=== PATIENT | male | born 1980 | race Caucasian/White ===

== ENCOUNTER 2022-09-28 23:34 | Inpatient (IN) | payer SELFPAY ==
[2022-09-28 23:34] VITALS: BP 111/78; PULSE 97; RESP 18; TEMP 36.5; O2SAT 96
[2022-09-29 00:10] VITALS: BMI 20.9
[2022-09-29 06:00] VITALS: BP 95/61; PULSE 74; RESP 18; O2SAT 95
[2022-09-29] MEDS: benztropine 1 mg Tablet PO (11:03)
[2022-09-29] MEDS: hyDROXYzine 25 mg Capsule 50 MG PO (11:03)
[2022-09-29] MEDS: nicotine 2 mg Gum BUCCAL (11:11)
--- NOTE | 2022-09-29 11:33 | PC.NURSE ---
Patient denies hi, but does endorse si and depression. Patient states he has no plan at this time and contracted for safety. Denies avh. Patient began rocking back and forth with tics and tremors of the arms, hands, neck, and feet. All appeared to be involuntary movements. He stated this was a normal occurrence when he was withdrawing from methamphetamine. Patient also endorsed having extreme anxiety and lockjaw. This RN administered cogentin and vistaril 50mg po. Patient's skin was very cool to the touch. He said he was very hungry but didn't want a sandwich. He did take two muffins and while eating them this RN did part of his physical assessment and because he was eating so erratically and quickly he spit on this nurse's arm by accident. Vitals were also taken and were all WNL. Patient now resting in bed and states he feels better.
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
[2022-09-29 14:00] VITALS: RESP 16
[2022-09-29 19:51] VITALS: BP 99/64; PULSE 63; RESP 18; TEMP 36.4; O2SAT 97
--- NOTE | 2022-09-29 23:45 | PC.NURSE ---
At approximately 2200 pt came to the desk w/chapincito scrub bottoms on no shirt, and was asked to change and put a shirt on. Pt became agitated and aggressive w/staff stating you're annoying the fuck out of me . Pt put shirt on and returned to the desk for a drink, then paced the halls. Upon returning to his room, he shut the door all the way and when he was confronted that he at least needed to leave the door open slightly per NPU rules, became agitated again w/staff stating that staff were not allowing him to sleep, and he wanted to check out. Pt agitation worsened when roommate was introduced into the room, stating staff were annoying him and preventing him from sleeping however this is the first time thus far this shift pt has been outside of his room or out of the bed. One on one care and redirection provided with limited affected. Pt returned to his room and layed down. Monitoring continues.
[2022-09-30 06:00] VITALS: BP 97/50; PULSE 61; RESP 16; O2SAT 95
[2022-09-30] MEDS: OLANZapine 5 mg ODT PO (09:17)
[2022-09-30] MEDS: nicotine 2 mg Gum BUCCAL ×2 (09:18→15:00)
[2022-09-30 13:32] VITALS: BP 105/64; PULSE 105; RESP 16; TEMP 36.5; O2SAT 98
--- NOTE | 2022-09-30 17:31 | W.PM.NPUPNS ---
Subjective NPU Subjective: The patient is a 42-year-old white male admitted with depression and suicidal ideation with a reported history of traumatic brain injury. He had stated that he would like to leave soon. He stated that he had been off of his medications for several weeks but would restart his Wellbutrin and gabapentin as previously prescribed. He stated that he remained uncertain as to whether he would return back to [place]. He had reported improved mood at this time. He had required some prompting for completion of activities of daily living. Mental Status Exam MSE Comments: The patient appeared to be twitching with poor hygiene and a steady gait. His right eye was externally deviated. He is a thin white male who appeared older than his stated age he was alert and orientedx3. His mood was described as a little better. His affect was constricted. His thought process was linear and logical. His thought content showed evidence of suicidal ideation and no homicidal ideation. He did not appear to be actively responding internal stimuli. His speech was normal in regards to volume with some increased latency in speech and some word finding difficulties. There was no clear evidence of delusional thinking. There was an overall poverty of content as he struggled to elaborate regarding any details regarding his living situation and his past history. His insight appeared impaired. His judgment was poor. His impulse control appeared limited at best. His recent and remote memory appeared impaired as well. Vitals/I&O/Wt Last Vital Signs Temp 97.7 F 09/30/22 13:32 Pulse 105 H 09/30/22 13:32 Resp 16 09/30/22 13:32 BP 105/64 09/30/22 13:32 Pulse Ox 98 09/30/22 13:32 O2 Del Method Room Air 09/30/22 06:00 Weight last 48 hrs Weight 58.967 kg Weight 58.967 kg A&P Assessment and plan (1) Depression, unspecified: (2) Suicidal ideation: (3) PTSD (post-traumatic stress disorder): (4) Methamphetamine abuse: Plan Is a 42-year-old white male endorsing suicidal ideation while currently homeless and actively using methamphetamines with a past history of depression and PTSD. Patient would likely benefit from inpatient hospitalization. 1.?Encourage individual, group and milieu therapy. 2.?Recommend sober living treatment at the highest level of care to which the patient is willing to commit. 3.??? Continue q-15 minute checks for safety.? 4. Attempt to gather collateral information and any previous records 5. Will start wellbutrin xl 150mg in am and Gabapentin 300mg po tid. Attestations NPU Medical Necessity Statement*: Inpatient hospitalization is medically necessary and deemed to be the clinically appropriate intervention at this time.? We will monitor/initiate medications and make changes as indicated.? Hs likely length of stay is 4 to 6 days. Coding Level of Care Code Acute Code for Chg Fwd Diagnoses Depression, unspecified F32.A Suicidal ideation R45.851 PTSD (post-traumatic stress disorder) F43.10 Methamphetamine abuse F15.10
[2022-09-30] MEDS: hyDROXYzine 25 mg Capsule 50 MG PO (17:33)
[2022-09-30] MEDS: gabapentin 300 mg Capsule PO (20:07)
[2022-09-30 20:17] VITALS: BP 117/78; PULSE 72; RESP 18; O2SAT 98
[2022-09-30] MEDS: trazodone 50 mg Tablet PO (20:42)
--- NOTE | 2022-09-30 21:35 | PC.NURSE ---
Pt belligerent w/staff regarding the hallway being lit, not being able to close his door, and not having a shower curtain in his room. Pt con't to perseverate on negative findings on the unit. One on one direction and care provided with minimal effect. Pt did return to his room to lay down. Monitoring continues.
[2022-10-01 06:00] VITALS: BP 96/59; PULSE 64; RESP 15; O2SAT 96
[2022-10-01] MEDS: gabapentin 300 mg Capsule PO (09:26)
[2022-10-01] MEDS: buPROPion XL (24 HR) 150 mg Tablet PO (09:27)
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
[2022-10-01 11:11] VITALS: BP 96/59; PULSE 64; RESP 15; O2SAT 96
[2022-10-01] MEDS: nicotine 2 mg Gum BUCCAL (11:53)
== END 2022-10-01 12:55 | disposition home or self-care (01) | DRG 881 ==
PROVIDERS: Admitting Provider Psychiatry & Neurology Psychiatry; Visit Provider Psychiatry & Neurology Psychiatry
DX: F32.A Depression, unspecified (principal); R45.851 Suicidal ideations; F15.20 Other stimulant dependence, uncomplicated; Z59.00 Homelessness unspecified; F43.10 Post-traumatic stress disorder, unspecified; Z87.820 Personal history of traumatic brain injury; Z62.810 Personal history of physical and sexual abuse in childhood; Z62.811 Personal history of psychological abuse in childhood; T43.296A Underdosing of other antidepressants, initial encounter; Z91.128 Patient's intentional underdosing of medication regimen for other reason
CPT/HCPCS: 97165; 99238

== ENCOUNTER 2022-10-19 22:50 | Inpatient (IN) | payer SELFPAY ==
[2022-10-19 23:11] VITALS: BP 138/83; PULSE 60; RESP 18; TEMP 36.8; O2SAT 97; BMI 22.6
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
[2022-10-19 23:49] LABS: Basophils # 0.1 10^3/uL (0.0-0.1); Basophils % 0.6 %; Eosinophils # 0.2 10^3/uL (0.0-0.8); Eosinophils % 2.1 %; Hematocrit 45.2 % (42.0-52.0); Hemoglobin 14.7 g/dL (11.7-16.6); Lymphocytes # 2.9 10^3/uL (0.8-4.8); Lymphocytes % 29.5 %; Mean Corpuscular HGB Conc 32.5 g/dL (30.0-36.0); Mean Corpuscular Hemoglobin 28.7 pg (28.0-34.0); Mean Corpuscular Volume 88.3 fl (80-94); Monocytes # 0.6 10^3/uL (0.2-0.9); Monocytes % 6.3 %; Neutrophils # 5.95 10^3/uL (1.8-7.7); Neutrophils % 60.7 %; Nucleated Red Blood Cells % 0 %; Platelet Count 235 10^3/cmm (130-400); Red Blood Count 5.12 10^6/uL (4.1-5.3); Red Cell Distribution Width 13.1 % (12.1-15.1); White Blood Count 9.8 10^3/uL (4.0-10.0)
[2022-10-20 00:27] LABS: Alanine Aminotransferase 14 U/L (0-41); Albumin Level 4.4 g/dL (3.5-5.2); Alkaline Phosphatase 66 U/L (40-130); Anion Gap 17.9 (5-19); Aspartate Amino Transferase 16 U/L (0-40); Blood Urea Nitrogen 11 mg/dL (6-20); Calcium 9.4 mg/dL (8.5-10.5); Carbon Dioxide 25 mmol/L (22-29); Chloride 104 mmol/L (98-107); Globulin 2.6 g/dL (1.3-4.6); Glomerular Filtration Rate 93.5 mL/min (90-130); Glucose 102 mg/dL (65-115); Osmolality Calculated 296 mOsm/kg (285-295); Potassium 3.9 mmol/L (3.5-5.1); Salicylate 0.5 mg/dL (3-10); Sodium 143 mmol/L (136-145); Thyroid Stimulating Hormone 3.38 uIU/mL (0.27-4.20); Total Bilirubin 0.9 mg/dL (0.15-1.2)
[2022-10-20 00:30] LABS: Acetaminophen < 5.0 ug/mL (10-30); Alcohol Level < 10 mg/dL (0-10)
[2022-10-20] MEDS: gabapentin 300 mg Capsule PO ×4 (00:44→20:20)
[2022-10-20] MEDS: acetaminophen 500 mg Tablet 1000 MG PO (00:44)
[2022-10-20] MEDS: LORazepam 1 mg Tablet PO (00:44)
[2022-10-20 02:47] LABS: Add Urine Microscopic? NO; Charge for UA Resulting for Rev
[2022-10-20 02:52] LABS: Bilirubin Urine Neg (Negative); Blood Urine Neg (Negative); Glucose Urine UA Norm (Normal); Ketones Urine Negative (Negative); Leukocyte Esterase Urine Negative (Negative); Nitrate Urine Negative (Negative); Protein Urine Neg (Negative); Urine Appearance Clear (CLEAR); Urine Color Yellow (Yellow); Urobilinogen Urine 1 mg/dL (Negative); pH Urine 6 (5-7)
[2022-10-20 02:57] VITALS: BP 129/77; PULSE 66; RESP 17; TEMP 36.7; O2SAT 99
[2022-10-20 03:02] VITALS: BP 127/86; PULSE 76; RESP 18; TEMP 36.4; O2SAT 96
[2022-10-20 03:21] LABS: Amphetamines Screen Urine Negative (Negative); Barbiturates Screen Urine Negative (Negative); Benzodiazepines Screen Urine Negative (Negative); Cocaine Screen Urine Negative (Negative); Opiate Screen Urine Negative (Negative); PCP Screen Urine Negative (Negative); THC Screen Urine Positive (Negative)
--- NOTE | 2022-10-20 03:57 | PC.ADMIT ---
Homeless Admission Note: The patient,Fabricio Patel,42 y/o, was given written information regarding hospital policies, unit procedures and contact persons. Patient's smoking status: .SMOKES 1 PACK A DAY Vital Signs - 8 hr 10/19/22 23:11 10/20/22 02:57 10/20/22 03:39 Temperature 98.2 F 98.0 F Pulse Rate 60 66 Respiratory Rate 18 17 Blood Pressure 138/83 129/77 Pulse Oximetry 97 99 Oxygen Delivery Method Room Air Room Air 10/20/22 03:02 Temperature 97.6 F Pulse Rate 76 Respiratory Rate 18 Blood Pressure 127/86 Pulse Oximetry 96 Oxygen Delivery Method Room Air 42 YEAR OLD MALE ADMITTED TO NPU AT [facility] WITH NURSE AND SECURITY AT SIDE VIA WHEELCHAIR. PT DATE WAS INCORRECT ON NAME BAND, REGISTRATION WAS CALLED AND BDAY WAS CLARIFIED AND FIXED PER REGISTRATION. PT STATES HIS BIRTHDAY IS [birth year] NOT [birth year]. PT WAS RECENTLY DISCHARGED FROM NPU A FEW WEEKS AGO AND WAS HERE FOR METHAMPHETAMINE ABUSE/PSYCHOSIS. PT STATES HE IS HERE TODAY BECAUSE I NEED NEW MEDICATIONS AND I'M OUT AND THEY AREN'T WORKING, SO I NEED OTHER ONES. I'N SUICIDAL AND WANTED TO RUN INTO MOVING TRAFFIC TODAY. PT IS HIGHLY AGITATED AND REFUSED TO SIGN HIS CONSENT FORM OR ANY OF HIS PAPER WORK AT TIME OF ADMISSION. PT WAS EDUCATED THAT WE COULD NOT TREAT HIM UNLESS HE SIGNS HIS PAPERS. ER REPORTS HE IS VOLUNTARY WITH NO AFFIDAVIT AND IS NOT ON A HOLD. PT WAS INFORMED IF HE WOULD NOT SIGN IN THEN HE LEAGALLY COULD NOT BE TREATED. PT DID EVENTUALLY SIGN IN AFTER MULTIPLE ATTEMPTS. PT DID NOT WANT TO SPEAK TO RN AND MAJORITY OF QUESTIONS PT STATED MAN JUST GET OUT OF MY FACE I WANT TO SLEEP. PT HAS HISTORY OF TBI AND HIS MEMORY IS IMPAIRED. PT KEEPS SAYIN HOW DID I GET BACK HERE I JUST LEFT THIS PLACE. I WAS TR[facility] SO I COULD STAY THERE FOR 40 DAYS AND THEY COULD STABILIZE. PT WAS ENCOURAGED TO ANSWER QUESTIONS AND PARTICIPATE IN ASSESSMENT. PT DENIES HI, STATES HE STILL FEELS SUICIDAL AND HE WILL BE UNTIL THE DRJuanpablo CHANGES HIS MEDICATIONS. WHEN ASKED IF PT HAS HALLUCINATIONS, PT JUST LOOKED UP IN THE AIR AND MUTTERED SOMETHING. PT DOES NOT APPEAAR TO BE RESPONDING TO INTERNAL OR EXTERNAL STIMULI. PT DENIES PAIN. PT IS OBSERVED HAVING DIFFICULTY AMBULATING TO ROOM AND USES THE WALL TO SHUFFLE DOWN TO 152. PT STATES HE USES A WALKER DUE TO NERVE PAIN. PTS GABAPENTIN WAS GIVEN IN THE ER AND WILL BE RESTARTED HERE. PT TAKES 300 MG TID. ORDERS RECEIVED FOR PHYSICAL THERAPY CONSULT TO ASSESS AND TREAT FOR BILATERAL LOWER EXTREMITY WEAKNESS AND FIT FOR WALKER IF NEEDED. PT USD POSITIVE FOR THC. PT ORIENTATED TO UNIT. ALL QUESTIONS ANSWERED AND SUPPORT VOICED. PT CURRENTLY IN BED RESTING REQUESTED.
--- NOTE | 2022-10-20 04:01 | PC.NURSE ---
ORDERS RECEIVED TO RESTART WELLBUTRIN 150 MG DAILY. PT WAS ON THIS AT TIME OF DISCHARGE. STATES IT DOES NOT WORK AND WANTS SOMETHING NEW. PT WAS EDUCATED THAT THE DRJuanpablo WOULD EVALUATE HIM TODAY AND DECIDE IF ANY CHANGES WERE WARRANTED.
[2022-10-20 06:00] VITALS: BP 109/69; PULSE 65; RESP 16; O2SAT 95
[2022-10-20] MEDS: buPROPion XL (24 HR) 150 mg Tablet PO (08:57)
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
[2022-10-20] MEDS: hyDROXYzine 25 mg Capsule 50 MG PO (13:44)
[2022-10-20 14:00] VITALS: BP 116/73; PULSE 89; RESP 16; TEMP 36.5; O2SAT 95
--- NOTE | 2022-10-20 15:28 | PC.PT ---
Per observation of occupational therapist, patient demonstrated safe independent ambulation to from group without device, and without deficits, gait was steady and even, and patient had no complaints of, regarding need of assistive device, staff state patient doing better today. No further PT intervention planned at this time.
[2022-10-20 20:16] VITALS: BP 119/76; PULSE 80; RESP 17; TEMP 36.8; O2SAT 96
[2022-10-20] MEDS: OLANZapine 5 mg ODT PO (20:19)
--- NOTE | 2022-10-20 21:13 | PC.NURSE ---
PT WAS WOKE UP TO COMPLETE ASSESSMENT. PT BECAME INCREASING AGITATED WHEN ASKED QUESTIONS. CONTINUES TO ENDORSES SUICIDAL THOUGHTS WITH A PLAN. WHEN ASKED WHAT HIS PLAN WAS PT COULD NOT VERBALIZE A PLAN, ONLY STATES IF THE FBI WASN'T AFTER ME AND ALL THAT SHIT, BUT YA I WANT TO , I JUST WANT TO . ALSO ENDORSEES HOMICIDAL IDEATION, WHEN ASKED WHO HE WAS WANTING TO HURT SPECIFICALLY PT COULD NOT RECALL, ONLY STATES WHEN YOU HAVE THE FBI AND THEY WON'T LEAVE YOU ALONE, THEN YA, YA PT DENIES AVH AT THIS TIME BUT AT TIMES SEEMS TO RESPOND TO INTERNAL STIMULI. PT IS UPSET THAT HE IS NOT PRESCRIBED DIFFERENT MEDICATIONS AND STATES HIS WELBUTRIN 150MG IS NOT WORKING AND THE GABAPENTIN NEEDS TO BE INCREASED. REASSURED PT THAT THE IS AWARE OF HIS MEDICATIONS AND HAS REVIEWED THEM AND WILL ADJUST IF NEEDED. PT IS ANIMATED WITH SPEECH, CUSSES AND HAS LOOSE ASSOCIATION WHEN SPEAKING WITH STAFF. PARANOID THAT THE FBI IS FOLLOWING HIM. PT WAS INFORMED THAT THE RN PULLED TRAZODONE TO HELP WITH HIS SLEEP,. PT STATED HE DOES NOT TAKE THAT IT MESSES WITH MY FEET. INFORMED PT HE SEEMED AGITATED AND OFFERED SOMETHING FOR ANXIETY. PT STATES WHAT DO YOU GOT, YA GIVE ME DRUGS I WANNA GET HIGH. PT WAS EDUCATED THAT THE MEDICATION IS USED FOR ANXIETY NOT TO GET HIGH. PT DID COME TO NURSES STATION AND NIGHT TIME MEDS WERE GIVEN WITH ZYDIS 5 MG ORDERED FOR ANXIETY AND AGITATION. SUPPORT VOICED.
--- NOTE | 2022-10-21 03:02 | PC.NURSE ---
ADMINISTRATION OF ZYDIS 5 MG EARLIER THIS SHIFT WAS EFFECTIVE. PT HAS BEEN SLEEPING SHORTLY AFTER MEDICATION WAS RECEIVED.
[2022-10-21 06:00] VITALS: BP 103/62; PULSE 67; RESP 17; O2SAT 100
[2022-10-21] MEDS: gabapentin 300 mg Capsule PO ×2 (09:30→15:59)
[2022-10-21] MEDS: buPROPion XL (24 HR) 150 mg Tablet PO (09:30)
[2022-10-21 14:00] VITALS: BP 116/77; PULSE 89; RESP 18; TEMP 36.6; O2SAT 97
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
--- NOTE | 2022-10-21 17:15 | PC.NURSE ---
PT REPEATEDLY REQUESTED TO LEAVE. PHYSICIAN SPOKE WITH PT AND STATED THAT HE DID BELIEVED THAT HE WOULD BENEFIT FOR A LONGER STAY HERE. PT STILL WANTED TO LEAVE. PHYSICIAN AWARE OF SITUATION AND STATED THAT HE WOULD HAVE TO LEAVE AMA. PT FILLED OUT RISK FORM AND ANSWERED NO TO ALL QUESTIONS. PT WAS EDUCATED ON WHAT LEAVING AMA MEANS AND HOW THAT MAY AFFECT HIM. PT UNDERSTANDS THE RISKS AND STILL SIGNED PAPERWORK TO LEAVE AMA. PT QUESTIONS WERE ANSWERED. BELONGINGS RETURNED.
[2022-10-21 17:19] VITALS: BP 116/77; PULSE 89; RESP 18; TEMP 36.6; O2SAT 97
== END 2022-10-21 17:27 | disposition left against medical advice (07) | DRG 881 ==
LOC: ER 10-20 00:44 → NP 10-20 03:13
PROVIDERS: Admitting Provider Psychiatry & Neurology Psychiatry; Emergency Provider Nurse Practitioner Family; Visit Provider Psychiatry & Neurology Psychiatry
DX: F32.A Depression, unspecified (principal); R45.851 Suicidal ideations; F43.10 Post-traumatic stress disorder, unspecified; Z59.00 Homelessness unspecified; F15.10 Other stimulant abuse, uncomplicated; Z87.820 Personal history of traumatic brain injury; Z53.29 Procedure and treatment not carried out because of patient's decision for other reasons
CPT/HCPCS: 36415; 80053; 80306; 80307; 81003; 84443; 85025; 97165; 99238; 99285

== ENCOUNTER 2022-10-22 23:26 | Emergency (ER) | payer SELFPAY ==
[2022-10-22 23:32] VITALS: BP 171/86; PULSE 110; RESP 16; TEMP 36.7; O2SAT 97; BMI 25.8
--- NOTE | 2022-10-23 00:06 | W.ED.ALCOHOL ---
HPI - Alcohol General: Chief Complaint: Alcohol Stated Complaint: SI Time Seen by Provider: 10/22/22 23:31 Source: EMS Mode of arrival: EMS Limitations: other (intoxicated) History of Present Illness: 42-year-old male who update care in the past he is homeless has a history of severe alcoholism patient was found at a gas station tonight was very intoxicated police were called he had supposedly made suicidal statements to the police he denies being suicidal to me he states that he just been drinking today he has no complaints here at this time but is extremely intoxicated and history is difficult Associated symptoms: Deny abdominal pain, nausea or vomiting Review of Systems Const: Denies: fever(s), chills, body aches or change in appetite Eyes: Denies: blurry vision or eye discomfort ENMT: Denies: throat pain or dental pain Card: Denies: chest pain Resp: Denies: dyspnea GI: Denies: abdominal pain, nausea, vomiting or diarrhea : Denies: dysuria Musc: Denies: neck pain or back pain Skin/Breast: Denies: rash Neuro: Denies: headache(s) Physical Exam Const: COMMON NORMALS: patient oriented x3 OTHER: Very intoxicated HENMT: COMMON NORMALS: normocephalic and atraumatic HEAD & SCALP: normocephalic and atraumatic Eye: COMMON NORMALS: Equal, round and reactive pupils present and EOMs intact bilaterally PUPIL: Yes Equal, round and reactive pupils present Neck/C-Spine: COMMON NORMALS: full ROM and supple Chest: COMMONS NORMALS: normal inspection of the chest and normal palpation of entire chest wall Resp: COMMON NORMALS: normal respiratory effort, No retractions, No use of accessory muscles and clear to auscultation bilaterally AUSCULTATION: clear to auscultation bilaterally Cardio: COMMON NORMALS: regular rate, regular rhythm and No murmurs present (Cardio) RATE: regular rate RHYTHM: regular rhythm GI: COMMON NORMALS: Normal to inspection, nondistended, normoactive bowel sounds present, Soft to palpation, non-tender and no masses PALPATION: Yes Soft to palpation Extremity: COMMON NORMALS: normal to inspection and full ROM Neuro: COMMON NORMALS: patient oriented x3, moves all extremities and no focal motor deficits Psych: COMMON NORMALS: mental status grossly normal, Normal thought process present and cooperative THOUGHT PROCESS: Normal thought process present Skin: COMMON NORMALS: no rashes or lesions noted and no wounds GENERAL SKIN EXAM: no rashes or lesions noted Course Vital Signs: Vital signs: Vital Signs Temperature 98.0 F 10/22/22 23:32 Pulse Rate 114 H 10/23/22 05:34 Respiratory Rate 18 10/23/22 05:34 Blood Pressure 122/83 10/23/22 00:32 Pulse Oximetry 97 10/23/22 05:34 Oxygen Delivery Me thod Room Air 10/22/22 23:32 MDM - Alcohol Medical Decision Making Patient presents with alcohol intoxication he has not made any suicidal statements. He is now sober ambulatory this morning discharge he is stable for discharge at this time he is follow-up with PCP and return if worsening. Medical Records I reviewed the patient's medical records. Lab Data I reviewed the patient's lab results. 10/22/22 23:45 10/22/22 23:45 Laboratory Results WBC 10.5 10^3/uL (4.0-10.0) H 10/22/22 23:45 RBC 5.47 10^6/uL (4.1-5.3) H 10/22/22 23:45 Hgb 16.0 g/dL (11.7-16.6) 10/22/22 23:45 Hct 48.3 % (42.0-52.0) 10/22/22 23:45 MCV 88.3 fl (80-94) 10/22/22 23:45 MCH 29.3 pg (28.0-34.0) 10/22/22 23:45 MCHC 33.1 g/dL (30.0-36.0) 10/22/22 23:45 RDW 13.3 % (12.1-15.1) 10/22/22 23:45 Plt Count 246 10^3/cmm (130-400) 10/22/22 23:45 MPV 10.9 fL (7.4-10.4) H 10/22/22 23:45 Neut % (Auto) 47.7 % 10/22/22 23:45 Lymph % (Auto) 40.8 % 10/22/22 23:45 [place] % (Auto) 7.5 % 10/22/22 23:45 Eos % (Auto) 2.0 % 10/22/22 23:45 Baso % (Auto) 0.7 % 10/22/22 23:45 Neut # (Auto) 5.02 10^3/uL (1.8-7.7) 10/22/22 23:45 Lymph # (Auto) 4.3 10^3/uL (0.8-4.8) 10/22/22 23:45 [place] # (Auto) 0.8 10^3/uL (0.2-0.9) 10/22/22 23:45 Eos # (Auto) 0.2 10^3/uL (0.0-0.8) 10/22/22 23:45 Baso # (Auto) 0.1 10^3/uL (0.0-0.1) 10/22/22 23:45 Nucleated RBC % (auto) 0 % 10/22/22 23:45 Nucleated RBCs # 0.0 /100WBC 10/22/22 23:45 Sodium 144 mmol/L (136-145) 10/22/22 23:45 Potassium 3.6 mmol/L (3.5-5.1) 10/22/22 23:45 Chloride 105 mmol/L (98-107) 10/22/22 23:45 Carbon Dioxide 24 mmol/L (22-29) 10/22/22 23:45 Anion Gap 18.6 (5-19) 10/22/22 23:45 BUN 8 mg/dL (6-20) 10/22/22 23:45 Creatinine 0.9 mg/dL (0.7-1.2) 10/22/22 23:45 GFR Calculation 93.5 mL/min (90-130) 10/22/22 23:45 Glucose 115 mg/dL (65-115) 10/22/22 23:45 Calculated Osmolality 297 mOsm/kg (285-295) H 10/22/22 23:45 Calcium 9.5 mg/dL (8.5-10.5) 10/22/22 23:45 Total Bilirubin 0.6 mg/dL (0.15-1.2) 10/22/22 23:45 AST 20 U/L (0-40) 10/22/22 23:45 ALT 19 U/L (0-41) 10/22/22 23:45 Alkaline Phosphatase 71 U/L (40-130) 10/22/22 23:45 Total Protein 7.4 g/dL (6.6-8.7) 10/22/22 23:45 Albumin 4.9 g/dL (3.5-5.2) 10/22/22 23:45 Globulin 2.5 g/dL (1.3-4.6) 10/22/22 23:45 Salicylates < 0.3 mg/dL (3-10) L 10/22/22 23:45 Urine Opiates Screen Negative ng/mL (Negative) 10/22/22 23:32 Acetaminophen < 5.0 ug/mL (10-30) L 10/22/22 23:45 Ur Barbiturates Screen Negative ng/mL (Negative) 10/22/22 23:32 Ur Phencyclidine Scrn Negative ng/mL (Negative) 10/22/22 23:32 Ur Amphetamines Screen Negative ng/mL (Negative) 10/22/22 23:32 U Benzodiazepines Scrn Negative ng/mL (Negative) 10/22/22 23:32 Urine Cocaine Screen Negative ng/mL (Negative) 10/22/22 23:32 U Marijuana (THC) Screen Positive ng/mL (Negative) H 10/22/22 23:32 Ethyl Alcohol 284 mg/dL (0-10) H 10/22/22 23:45 Discharge Plan Discharge Patient Disposition: Home Clinical Impression: Alcoholic intoxication Condition: Stable Prescriptions: No Action gabapentin 300 mg Capsule 300 mg PO TID Qty: 90 1RF bupropion HCl 150 mg Tablet Extended Release 24 Hr 150 mg PO DAILY 30 Days Qty: 30 1RF Wellbutrin SR 150 mg Tablet Sustained-Release 12 Hr 150 mg PO DAILY gabapentin 300 mg Capsule 300 mg PO TID Discharge Orders: Discharge ED (Routine); Ordered 10/23/22 Ordered By: Martha Gill Discharge Diet: Advance as tolerated Discharge Activity: Resume usual activity Patient Instructions: Alcohol Intoxication (ED) Coding Level of Care Code ED Harvester Operator for Gomez Jovel
[2022-10-23 00:11] LABS: Alanine Aminotransferase 19 U/L (0-41); Albumin Level 4.9 g/dL (3.5-5.2); Alcohol Level 284 mg/dL (0-10); Alkaline Phosphatase 71 U/L (40-130); Anion Gap 18.6 (5-19); Aspartate Amino Transferase 20 U/L (0-40); Blood Urea Nitrogen 8 mg/dL (6-20); Calcium 9.5 mg/dL (8.5-10.5); Carbon Dioxide 24 mmol/L (22-29); Chloride 105 mmol/L (98-107); Globulin 2.5 g/dL (1.3-4.6); Glomerular Filtration Rate 93.5 mL/min (90-130); Glucose 115 mg/dL (65-115); Osmolality Calculated 297 mOsm/kg (285-295); Potassium 3.6 mmol/L (3.5-5.1); Sodium 144 mmol/L (136-145); Total Bilirubin 0.6 mg/dL (0.15-1.2); Total Protein 7.4 g/dL (6.6-8.7)
[2022-10-23 00:20] LABS: Acetaminophen < 5.0 ug/mL (10-30); Salicylate < 0.3 mg/dL (3-10)
[2022-10-23 00:22] LABS: Basophils # 0.1 10^3/uL (0.0-0.1); Basophils % 0.7 %; Eosinophils # 0.2 10^3/uL (0.0-0.8); Hematocrit 48.3 % (42.0-52.0); Lymphocytes # 4.3 10^3/uL (0.8-4.8); Lymphocytes % 40.8 %; Mean Corpuscular HGB Conc 33.1 g/dL (30.0-36.0); Mean Corpuscular Hemoglobin 29.3 pg (28.0-34.0); Mean Corpuscular Volume 88.3 fl (80-94); Mean Platelet Volume 10.9 fL (7.4-10.4); Monocytes # 0.8 10^3/uL (0.2-0.9); Monocytes % 7.5 %; Neutrophils # 5.02 10^3/uL (1.8-7.7); Neutrophils % 47.7 %; Nucleated Red Blood Cells % 0 %; Platelet Count 246 10^3/cmm (130-400); Red Blood Count 5.47 10^6/uL (4.1-5.3); Red Cell Distribution Width 13.3 % (12.1-15.1); White Blood Count 10.5 10^3/uL (4.0-10.0)
[2022-10-23 00:23] LABS: Slide Review Slide Review Perform
[2022-10-23 00:32] VITALS: BP 122/83; PULSE 98; RESP 16; O2SAT 98
[2022-10-23] MEDS: haloperidol inj 5 mg/mL INJ 1 mL IM (00:48)
[2022-10-23 00:56] LABS: Amphetamines Screen Urine Negative (Negative); Barbiturates Screen Urine Negative (Negative); Benzodiazepines Screen Urine Negative (Negative); Cocaine Screen Urine Negative (Negative); Opiate Screen Urine Negative (Negative); PCP Screen Urine Negative (Negative); THC Screen Urine Positive (Negative)
[2022-10-23 02:45] VITALS: PULSE 110; RESP 18
[2022-10-23 03:15] VITALS: RESP 16
[2022-10-23 05:34] VITALS: PULSE 114; RESP 18; O2SAT 97
== END 2022-10-23 05:35 | disposition home or self-care (01) ==
PROVIDERS: Emergency Provider Emergency Medicine
DX: F10.129 Alcohol abuse with intoxication, unspecified (principal); Y90.8 Blood alcohol level of 240 mg/100 ml or more; Z79.899 Other long term (current) drug therapy; Z59.00 Homelessness unspecified
CPT/HCPCS: 80053; 80306; 80307; 85025; 96372; 99284; J1630

== ENCOUNTER 2022-10-25 04:42 | Emergency (ER) | payer SELFPAY ==
[2022-10-25 04:49] VITALS: BP 175/85; PULSE 120; RESP 18; TEMP 36.6; O2SAT 97; BMI 22.6
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
--- NOTE | 2022-10-25 04:57 | XRR_ITS ---
PROCEDURE INFORMATION: Exam: XR Thoracic Spine Exam date and time: 10/25/2022 5:04 AM Age: 42 years old Clinical indication: Injury or trauma; Fall; Blunt trauma (contusions or hematomas); Patient HX: Patient fell backwards onto back two days ago. C/O worsening mid back pain. TECHNIQUE: Imaging protocol: Radiologic exam of the thoracic spine. Views: 3 views. COMPARISON: No relevant prior studies available. FINDINGS: Bones/joints: Normal. No acute fracture. Normal alignment. Soft tissues: Unremarkable. XR/XR thoracic spine 3V* [id number] IMPRESSION: No acute findings.
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
[2022-10-25] MEDS: LORazepam 2 mg Tablet PO (05:03)
[2022-10-25] MEDS: gabapentin 300 mg Capsule 600 MG PO (05:03)
[2022-10-25 05:06] VITALS: BP 175/85; PULSE 128; O2SAT 97
[2022-10-25 05:22] VITALS: BP 157/85; PULSE 120; O2SAT 98
[2022-10-25 05:24] VITALS: BP 157/85; PULSE 128; RESP 18; O2SAT 98
== END 2022-10-25 05:28 | disposition home or self-care (01) ==
PROVIDERS: Emergency Provider Emergency Medicine
DX: M54.9 Dorsalgia, unspecified (principal)
CPT/HCPCS: 72072; 72100; 99283

== ENCOUNTER 2022-10-31 20:56 | Inpatient (IN) | payer SELFPAY ==
[2022-10-31 21:00] VITALS: BP 138/91; PULSE 105; RESP 16; TEMP 37.1; O2SAT 95; BMI 22.6
[2022-10-31] MEDS: LORazepam 2 mg/mL INJ 1 mL IM (21:28)
[2022-10-31 21:35] LABS: Basophils # 0.1 10^3/uL (0.0-0.1); Basophils % 0.6 %; Eosinophils # 0.1 10^3/uL (0.0-0.8); Eosinophils % 1.2 %; Hemoglobin 14.7 g/dL (11.7-16.6); Lymphocytes # 2.4 10^3/uL (0.8-4.8); Mean Corpuscular HGB Conc 33.4 g/dL (30.0-36.0); Mean Corpuscular Hemoglobin 28.7 pg (28.0-34.0); Mean Corpuscular Volume 85.9 fl (80-94); Mean Platelet Volume 10.9 fL (7.4-10.4); Monocytes # 0.8 10^3/uL (0.2-0.9); Monocytes % 8.1 %; Neutrophils # 6.44 10^3/uL (1.8-7.7); Neutrophils % 65.5 %; Nucleated Red Blood Cells % 0 %; Platelet Count 241 10^3/cmm (130-400); Red Blood Count 5.12 10^6/uL (4.1-5.3); White Blood Count 9.8 10^3/uL (4.0-10.0)
[2022-10-31 21:51] LABS: Alanine Aminotransferase 19 U/L (0-41); Albumin Level 4.4 g/dL (3.5-5.2); Alkaline Phosphatase 69 U/L (40-130); Anion Gap 14.8 (5-19); Aspartate Amino Transferase 18 U/L (0-40); Blood Urea Nitrogen 16 mg/dL (6-20); Calcium 9.5 mg/dL (8.5-10.5); Carbon Dioxide 26 mmol/L (22-29); Chloride 101 mmol/L (98-107); Globulin 2.2 g/dL (1.3-4.6); Glomerular Filtration Rate 82.8 mL/min (90-130); Glucose 95 mg/dL (65-115); Osmolality Calculated 287 mOsm/kg (285-295); Potassium 3.8 mmol/L (3.5-5.1); Sodium 138 mmol/L (136-145); Total Bilirubin 1.2 mg/dL (0.15-1.2); Total Protein 6.6 g/dL (6.6-8.7)
[2022-10-31 21:52] LABS: Acetaminophen < 5.0 ug/mL (10-30); Alcohol Level < 10 mg/dL (0-10); Salicylate < 0.3 mg/dL (3-10)
--- NOTE | 2022-10-31 21:56 | ED.C_ITS ---
HPI - Psych General: Chief Complaint: Psychiatric Symptoms Stated Complaint: Anxiety\Needs Meds Time Seen by Provider: 10/31/22 21:01 Source: patient Mode of arrival: ambulatory Limitations: no limitations History of Present Illness: 42-year-old male who states he is suicidal. Patient is homeless well-known to the ER he states he has a plan to jumping out in front of cars. He has a history of alcoholism along with meth abuse. Associated symptoms: Reports depression and suicidal ideation Review of Systems Const: Denies: fever(s), chills, body aches or change in appetite ENMT: Denies: throat pain or dental pain Card: Denies: chest pain Resp: Denies: dyspnea GI: Denies: abdominal pain, nausea, vomiting or diarrhea Musc: Denies: neck pain or back pain Skin/Breast: Denies: rash Neuro: Denies: headache(s) Psych: Reports: depression and suicidal ideation Physical Exam Const: COMMON NORMALS: no acute distress, patient oriented x3 and healthy sheree earing HENMT: COMMON NORMALS: normocephalic and atraumatic HEAD & SCALP: normocephalic and atraumatic Eye: COMMON NORMALS: Equal, round and reactive pupils present and EOMs intact bilaterally PUPIL: Yes Equal, round and reactive pupils present Neck/C-Spine: COMMON NORMALS: full ROM and supple Chest: COMMONS NORMALS: normal inspection of the chest and normal palpation of entire chest wall Resp: COMMON NORMALS: normal respiratory effort, No retractions, No use of accessory muscles and clear to auscultation bilaterally AUSCULTATION: clear to auscultation bilaterally Cardio: COMMON NORMALS: regular rate, regular rhythm and No murmurs present (Cardio) RATE: regular rate RHYTHM: regular rhythm GI: COMMON NORMALS: Normal to inspection, nondistended, normoactive bowel sounds present, Soft to palpation, non-tender and no masses PALPATION: Yes Soft to palpation Extremity: COMMON NORMALS: normal to inspection and full ROM Neuro: COMMON NORMALS: patient oriented x3, moves all extremities and no focal motor deficits Psych: COMMON NORMALS: mental status grossly normal, Normal thought process present and cooperative THOUGHT PROCESS: Normal thought process present THOUGHT CONTENT: Yes Suicidality present Skin: COMMON NORMALS: no rashes or lesions noted and no wounds GENERAL SKIN EXAM: no rashes or lesions noted Course Vital Signs: Vital signs: Vital Signs Temperature 98.8 F 10/31/22 21:00 Pulse Rate 105 H 10/31/22 21:00 Respiratory Rate 16 10/31/22 21:00 Blood Pressure 138/91 10/31/22 21:00 Pulse Oximetry 95 10/31/22 21:00 Oxygen Delivery Me thod Room Air 10/31/22 21:00 MDM - Psych Medical Decision Making Patient presents for suicidal ideation he is medically cleared I spoke to [facility] h[facility]rist will admit to the psychiatric [facility]. Lab Data 10/31/22 21:27 10/31/22 21: Laboratory Results WBC 9.8 10^3/uL (4.0-10.0) 10/31/22 21: RBC 5.12 10^6/uL (4.1-5.3) 10/31/22 21: Hgb 14.7 g/dL (11.7-16.6) 10/31/22 21: Hct 44.0 % (42.0-52.0) 10/31/22 21: MCV 85.9 fl (80-94) 10/31/22 21: MCH 28.7 pg (28.0-34.0) 10/31/22 21: MCHC 33.4 g/dL (30.0-36.0) 10/31/22 21: RDW 13.0 % (12.1-15.1) 10/31/22 21: Plt Count 241 10^3/cmm (130-400) 10/31/22 21: MPV 10.9 fL (7.4-10.4) H 10/31/22 21: Neut % (Auto) 65.5 % 10/31/22 21: Lymph % (Auto) 24.0 % 10/31/22 21: Daniels % (Auto) 8.1 % 10/31/22 21: Eos % (Auto) 1.2 % 10/31/22 21: Baso % (Auto) 0.6 % 10/31/22 21: Neut # (Auto) 6.44 10^3/uL (1.8-7.7) 10/31/22 21: Lymph # (Auto) 2.4 10^3/uL (0.8-4.8) 10/31/22 21:27 Daniels # (Auto) 0.8 10^3/uL (0.2-0.9) 10/31/22 21:27 Eos # (Auto) 0.1 10^3/uL (0.0-0.8) 10/31/22 21: Baso # (Auto) 0.1 10^3/uL (0.0-0.1) 10/31/22 21: Nucleated RBC % (auto) 0 % 10/31/22 21: Nucleated RBCs # 0.0 /100WBC 10/31/22 21:27 Sodium 138 mmol/L (136-145) 10/31/22 21: Potassium 3.8 mmol/L (3.5-5.1) 10/31/22: Chloride 101 mmol/L (98-107) 10/31/22: Carbon Dioxide 26 mmol/L (22-29) 10/31/22: Anion Gap 14.8 (5-19) 10/31/22 21: BUN 16 mg/dL (6-20) 10/31/22 21: Creatinine 1.0 mg/dL (0.7-1.2) 10/31/22: GFR Calculation 82.8 mL/min (90-130) L 10/31/22: Glucose 95 mg/dL (65-115) 10/31/22: Calculated Osmolality 287 mOsm/kg (285-295) 10/31/22: Calcium 9.5 mg/dL (8.5-10.5) 10/31/22: Total Bilirubin 1.2 mg/dL (0.15-1.2) 10/31/22: AST 18 U/L (0-40) 10/31/22: ALT 19 U/L (0-41) 10/31/22 21: Alkaline Phosphatase 69 U/L (40-130) 10/31/22 21: Total Protein 6.6 g/dL (6.6-8.7) 10/31/22 21: Albumin 4.4 g/dL (3.5-5.2) 10/31/22: Globulin 2.2 g/dL (1.3-4.6) 10/31/22 21:27 Salicylates < 0.3 mg/dL (3-10) L 10/31/22 21:27 Acetaminophen < 5.0 ug/mL (10-30) L 10/31/22 21:27 Ethyl Alcohol < 10 mg/dL (0-10) 10/31/22 21:27 Discharge Plan Discharge Patient Disposition: Admitted As Inpatient Clinical Impression: Homelessness, Suicidal ideation Condition: Stable Coding Level of Care Code ED 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
--- NOTE | 2022-10-31 22:38 | PC.NURSE ---
Patient 96 Hour Hold Rights have been read to patient and a copy of the same has been given to him. fire management officer Yanna Luna was present at bedside at the time of reading.
--- NOTE | 2022-10-31 22:42 | PC.NURSE ---
Dr Gill was informed of pt's refusal of Haldol and inability to produce urine specimen.
[2022-10-31 22:47] VITALS: BP 128/77; PULSE 77; RESP 16; O2SAT 96
--- NOTE | 2022-10-31 23:00 | PC.NURSE ---
Report called to JESSI Navarro in NPU. Pt trasnferred with all belongings and paperwork to NPU.
[2022-10-31 23:17] VITALS: RESP 16; O2SAT 96
--- NOTE | 2022-11-01 00:16 | PC.NURSE ---
Pt arrived to NPU at 2308 w/security and RN at side. Pt is having to be positioned by transporting staff in w/c d/t sedation and somnolence r/t medication received in the ER. Unable to complete admission assessment.
--- NOTE | 2022-11-01 04:43 | PC.NURSE ---
Unable to verify medications d/t pts sedation level.
[2022-11-01 06:00] VITALS: BP 129/75; PULSE 72; RESP 16; O2SAT 92
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
[2022-11-01] MEDS: multivitamin therapeutic Tablet 1 TAB PO (09:14)
[2022-11-01] MEDS: folic acid 1 mg Tablet PO (09:14)
[2022-11-01] MEDS: thiamine 100 mg Tablet PO (09:14)
[2022-11-01 14:00] VITALS: BP 112/64; PULSE 83; RESP 16; TEMP 37.1; O2SAT 95
[2022-11-01 19:32] LABS: Amphetamines Screen Urine Negative (Negative); Barbiturates Screen Urine Negative (Negative); Benzodiazepines Screen Urine Positive (Negative); Cocaine Screen Urine Negative (Negative); Opiate Screen Urine Negative (Negative); PCP Screen Urine Negative (Negative); THC Screen Urine Positive (Negative)
[2022-11-01] MEDS: gabapentin 300 mg Capsule PO (20:23)
[2022-11-01 21:40] VITALS: BP 123/72; PULSE 70; RESP 15; O2SAT 98
[2022-11-02 06:00] VITALS: BP 114/70; PULSE 80; RESP 16; TEMP 36.8; O2SAT 98
--- NOTE | 2022-11-02 07:34 | PC.NURSE ---
PT CAME UP TO NURSES STATION STATING I WANT THIS TO BE ON MY RECORD SINCE THAT BLACK DOCTOR ISNT GOING TO HELP ME. I WANT TO LEAVE LIKE I DID LAST TIME. PT WAS EDUCATED THAT WHILE IN THE ER HE WAS PLACED ON 96HR HOLD AND THAT THE ONLY PERSON THAT CAN RELEASE THAT WOULD BE THE PHYSICIAN. PT BECAME AGITATED THEN STATED WELL THEN I WANT TO SPEAK WITH DOCTOR I SAW LAST TIME I WAS HERE. PT WAS EDUCATED THAT OUR PHYSICIANS SWITCH ABOUT EVERY 2 WEEKS AND THAT WILL NOT BE HERE FOR ABOUT THAT MUCH LONGER. PT BECAME AGITATED AND STATED SO THAT CHELSI DOCTOR IS WHO I WILL SEE AGAIN? HE TOLD ME ILL BE LEAVING BY THURSDAY AND THATS SHIT. I DONT LIKE THAT BLACK STAN. I JUST WANT TO GET OUT OF THIS COUNTY. HE BASICALLY TOLD ME IM A PIECE OF SHIT. THIS NURSES STATED THAT THE DOCTOR DID NOT TELL HIM THAT AND THAT HE WILL BE SPEAKING WITH THE DOCTOR AGAIN TODAY.
--- NOTE | 2022-11-02 09:58 | PC.NURSE ---
Pt refused to take his medication this AM, pt stated that he feels that he needs something stronger or different to help with his depression and anxiety. Nurse will talk with about possible med changes.
--- NOTE | 2022-11-02 10:02 | W.PM.NPUPNS ---
Subjective NPU Subjective: Patient presented today reporting that he is doing okay. He feels however that the Wellbutrin had stopped working appropriately. We discussed the risks, benefits and alternatives of increasing Wellbutrin to 300 mg p.o. q. morning and adding BuSpar 10 mg p.o. twice daily for his anxiety and he understood and agreed to proceed as is documented in this note. Mental Status Exam MSE Comments: This is a slender white male with a fairly nelia complexion consistent with being outside in the elements regularly in hospital scrubs with poor grooming and limited eye contact. He does have a apparently wandering right eye that does not move in concert with his left eye appropriately. Poor dentition. No abnormal movements except for mild psychomotor agitation. Eventually cooperative with exam after some ground rules were established, in mild to moderate distress. Speech was increased rate and normal volume. Mood described as depressed, affect odd and irritable. Thought process mostly organized. Thought content: Patient endorses having suicidal thoughts but it is unclear if this represents real suicidal thinking or malingering. He denied homicidal ideation, there were no delusions reported or noted, he denied any auditory or visual hallucinations. Attention and concentration appeared intact and memory was of questionable reliability but none were formally tested. He is alert and oriented to person and place. Insight, judgment and impulse control are impaired. Vitals/I&O/Wt Last Vital Signs Temp 98.3 F 11/02/22 14:00 Pulse 73 11/02/22 14:00 Resp 16 11/02/22 14:00 BP 123/82 11/02/22 14:00 Pulse Ox 98 11/02/22 14:00 O2 Del Method Room Air 11/02/22 14:00 Weight last 48 hrs Weight 61.235 kg Weight 61.235 kg Data NPU 10/31/22 21:27 10/31/22 21:27 A&P Assessment and plan (1) Depression, unspecified: (2) Traumatic brain injury: (3) PTSD (post-traumatic stress disorder): Plan This a 42-year-old white male endorsing suicidal ideation while currently homeless and past history of methamphetamine abuse, and current history of alcohol and marijuana addiction, TBI, with a past history of depression and PTSD.? Who presents after his third admission in a month reporting that he will function differently this time so that he can get help. 1.?Encourage individual, group and milieu therapy. 2.?Recommend sober living treatment at the highest level of care to which the patient is willing to commit. 3.?Continue q-15 minute checks for safety.? 4.? Restart Wellbutrin XL 150mg in am, and Gabapentin 300mg tid. Increase Wellbutrin XL to 300 mg daily and add BuSpar 10 mg p.o. twice daily. Involuntary Hold Information 96 Hour Hold: 96 Hour Involuntary Admission: Yes 96 Hour Hold Ending Date: 11/06/22 96 Hour Hold Ending Time: 21:35 Attestations NPU Medical Necessity Statement*: Inpatient hospitalization is medically necessary and the clinically appropriate intervention at this time. We will monitor/initiate medication and make changes as indicated. Likely length of stay is 4 to 6 days. Coding Level of Care Code Acute Code for g Fwd Diagnoses Depression, unspecified F32.A Traumatic brain injury S06.9XAA PTSD (post-traumatic stress disorder) F43.10
[2022-11-02 14:00] VITALS: BP 123/82; PULSE 73; RESP 16; TEMP 36.8; O2SAT 98
[2022-11-02] MEDS: gabapentin 300 mg Capsule PO ×2 (15:16→20:33)
[2022-11-02] MEDS: promethazine 25 mg Tablet 12.5 MG PO (15:44)
[2022-11-02 20:02] VITALS: BP 132/89; PULSE 77; RESP 18; TEMP 37.3; O2SAT 96
[2022-11-03 06:00] VITALS: BP 120/81; PULSE 66; RESP 16; TEMP 36.8; O2SAT 98
--- NOTE | 2022-11-03 07:40 | W.PM.NPUPNS ---
Subjective NPU Subjective: Patient presented today reporting that he is doing okay. He did have a moment where he was fairly out of control as treatment team helped him with a food stamp card. He was having difficulty setting up in and got frustrated and became irate slamming things. It took him quite a while before he was able to calm himself down. Mental Status Exam MSE Comments: This is a slender white male with a fairly nelia complexion consistent with being outside in the elements regularly in hospital scrubs with poor grooming and limited eye contact. He does have a apparently wandering right eye that does not move in concert with his left eye appropriately. Poor dentition. No abnormal movements except for mild to moderate psychomotor agitation. Eventually cooperative with exam after some ground rules were established, in mild to moderate distress. Speech was increased rate and normal volume. Mood described as depressed, affect odd and irritable. Thought process mostly organized. Thought content: Patient endorses having suicidal thoughts but it is unclear if this represents real suicidal thinking or malingering. He denied homicidal ideation, there were no delusions reported or noted, he denied any auditory or visual hallucinations. Attention and concentration appeared intact and memory was of questionable reliability but none were formally tested. He is alert and oriented to person and place. Insight, judgment and impulse control are impaired. Vitals/I&O/Wt Last Vital Signs Temp 98.3 F 11/03/22 06:00 Pulse 66 11/03/22 06:00 Resp 16 11/03/22 06:00 BP 120/81 11/03/22 06:00 Pulse Ox 98 11/03/22 06:00 O2 Del Method Room Air 11/03/22 06:00 Weight last 48 hrs Weight 61.235 kg Weight 61.235 kg Data NPU 10/31/22 21:27 10/31/22 21:27 A&P Assessment and plan (1) Depression, unspecified: (2) Traumatic brain injury: (3) PTSD (post-traumatic stress disorder): Plan This a 42-year-old white male endorsing suicidal ideation while currently homeless and past history of methamphetamine abuse, and current history of alcohol and marijuana addiction, TBI, with a past history of depression and PTSD.? Who presents after his third admission in a month reporting that he will function differently this time so that he can get help. 1.?Encourage individual, group and milieu therapy. 2.?Recommend sober living treatment at the highest level of care to which the patient is willing to commit. 3.?Continue q-15 minute checks for safety.? 4.? Restart Wellbutrin XL 150mg in am, and Gabapentin 300mg tid. Increased Wellbutrin XL to 300 mg daily and add BuSpar 10 mg p.o. twice daily. Involuntary Hold Information 96 Hour Hold: 96 Hour Involuntary Admission: Yes 96 Hour Hold Ending Date: 11/06/22 96 Hour Hold Ending Time: 21:35 Attestations NPU Medical Necessity Statement*: Inpatient hospitalization is medically necessary and the clinically appropriate intervention at this time. We will monitor/initiate medication and make changes as indicated. Likely length of stay is 3-5 days. Coding Level of Care Code Acute Code for [facility] Fwd Diagnoses Depression, unspecified F32.A Traumatic brain injury S06.9XAA PTSD (post-traumatic stress disorder) F43.10
[2022-11-03] MEDS: multivitamin therapeutic Tablet 1 TAB PO (08:20)
[2022-11-03] MEDS: thiamine 100 mg Tablet PO (08:20)
[2022-11-03] MEDS: folic acid 1 mg Tablet PO (08:20)
[2022-11-03] MEDS: gabapentin 300 mg Capsule PO ×3 (08:20→20:20)
[2022-11-03] MEDS: BuSPIRONE 10 mg Tablet PO ×2 (08:21→20:20)
[2022-11-03] MEDS: buPROPion XL (24 HR) 150 mg Tablet 300 MG PO (08:21)
[2022-11-03] MEDS: nicotine 2 mg Gum BUCCAL (10:20)
[2022-11-03 14:00] VITALS: BP 145/93; PULSE 83; RESP 17; O2SAT 98
[2022-11-03] MEDS: ondansetron 4 MG Tablet PO (14:16)
--- NOTE | 2022-11-03 14:17 | PC.NURSE ---
PRN ZOFRAN 4 MG GIVEN PO PER PT C/O NAUSEA/VOMITING
[2022-11-03] MEDS: calcium carbonate 500 mg Chew Tablet 1000 MG PO (17:51)
[2022-11-03] MEDS: trazodone 50 mg Tablet PO (20:20)
[2022-11-03] MEDS: blistex lip oint 7 gm Tube 1 APPLIC TOPICAL (20:20)
--- NOTE | 2022-11-03 21:11 | PC.NURSE ---
PT IN DAY AREA, MILD ANXIETY IS NOTED. STATES I'M GOING CRAZY BEING LOCKED UP IN HERE. SUPPORT WAS VOICED. PT STILL ENDORSES HE FEELS LIKE JUMPING INTO TRAFFIC, DENIES HI AND AVH AT THIS TIME. PT IS ANXIOUS ABOUT DISCHARGING TO A SOBER LIVING HOUSE AND WANTS MORE INFORMATION. PT WAS EDUCATED ABOUT SOME PLACES IN THE AREA BUT WAS DIRECTED TO SPEAK TO NUCLEAR WEAPONS SPECIALIST IN THE AM. ALL QUESTIONS WERE ANSWERED.
[2022-11-03 21:22] VITALS: BP 127/79; PULSE 70; RESP 18; O2SAT 96
[2022-11-04 06:00] VITALS: BP 115/67; PULSE 70; RESP 16; O2SAT 98
[2022-11-04] MEDS: buPROPion XL (24 HR) 150 mg Tablet 300 MG PO (08:53)
[2022-11-04] MEDS: gabapentin 300 mg Capsule PO ×2 (08:53→14:30)
[2022-11-04] MEDS: multivitamin therapeutic Tablet 1 TAB PO (08:53)
[2022-11-04] MEDS: thiamine 100 mg Tablet PO (08:53)
[2022-11-04] MEDS: BuSPIRONE 10 mg Tablet PO (08:53)
[2022-11-04] MEDS: folic acid 1 mg Tablet PO (08:53)
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
[2022-11-04 13:02] VITALS: BP 115/67; PULSE 70; RESP 16; O2SAT 98
== END 2022-11-04 15:53 | disposition home or self-care (01) | DRG 881 ==
LOC: ER 21:58 → NP 22:20
PROVIDERS: Admitting Provider Psychiatry & Neurology Psychiatry; Emergency Provider Emergency Medicine; Visit Provider Psychiatry & Neurology Psychiatry
DX: F32.A Depression, unspecified (principal); R45.851 Suicidal ideations; F41.9 Anxiety disorder, unspecified; Z59.00 Homelessness unspecified; F10.10 Alcohol abuse, uncomplicated; F15.10 Other stimulant abuse, uncomplicated; F12.90 Cannabis use, unspecified, uncomplicated; F43.10 Post-traumatic stress disorder, unspecified; Z87.820 Personal history of traumatic brain injury
CPT/HCPCS: 36415; 80053; 80306; 80307; 85025; 96372; 97165; 99238; 99285; J2060; Q0162; Q0169